=== PATIENT | male | born 2000 | race Hispanic/Latino ===

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

== ENCOUNTER 2025-08-03 11:57 | Emergency (ER) | payer OTHER ==
[~2025-08-03] VITALS: Ht 172.7 cm; Wt 68.0 kg
[~2025-08-03 11:57] MED LIST: CYCL5TAB3 PO; LIDO1ADH71 TP; METH4TAB3 PO; NAPR-1194 PO
[2025-08-03] MEDS: 0.9%NACL 1000ML 1,000 ML IV SCH (12:33)
[2025-08-03] MEDS ORDERED: ONDA-243 PO (12:43)
--- NOTE | 2025-08-03 12:46 | ERN ---
ED Note History of Present Illness Stated Complaint: GBW Chief Complaint: Weakness Time Seen by MD: 12:07 Time Seen by Midlevel: 12:07 Dictation: Mr. Sethi is a 25-year-old male with no reported chronic health issues who presented to the emergency department this afternoon for evaluation of general body weakness. He reports fatigue, general weakness, nausea, vomiting, until headache after drinking last night. He states he drank more than usual to include six shots of whiskey. He denies fever, chills, shortness of breath, cough, chest pain, palpitations, edema, abdominal pain,hematemesis, constipation, diarrhea, melena, hematochezia, dysuria, dizziness, or focal weakness/paresthesia Allergies: Coded Allergies: No Known Drug Allergies (Unverified Allergy, Unknown, 12/05/19) Home Meds Active Scripts Lidocaine (Lidocaine Pain Relief) 4 % Adh..patch, 1 EACH TP DAILY for 5 Days, #5 ADH.PATCH Prov:THERESA VERONICA 01/11/24 Naproxen (Naproxen) 500 Mg Tablet, 500 MG PO BID for 5 Days, #10 TAB Prov:THERESA VERONICA 01/11/24 Methylprednisolone (Medrol) 4 Mg Tab.ds.pk, 4 MG PO AD for torrie medrol pack instruction for 5 Days, #1 PACK Prov:THERESA VERONICA 01/11/24 Cyclobenzaprine HCl (Cyclobenzaprine HCl) 5 Mg Tablet, 5 MG PO DAILYDINNER for 5 Days, #5 TAB Prov:THERESA VERONICA 01/11/24 Past Medical History Past Medical History: No Pertinent History Surgical History: None PSYCH History: no pertinent psych hx Social History: ETOH (1-2 times per month), Lives with family RN Note Reviewed/Agreed w/PFSH: Yes Review of System Dictation REVIEW OF SYSTEMS: CONSTITUTIONAL: Patient denies fevers, chills, sweats and weight changes. Reports fatigue and general weakness EYES: Patient denies any visual symptoms. EARS, NOSE, AND THROAT: No difficulties with hearing. No symptoms of rhinitis or sore throat. CARDIOVASCULAR: Patient denies chest pains, palpitations, orthopnea and paroxysmal nocturnal dyspnea. RESPIRATORY: No dyspnea on exertion, no wheezing or cough. GI: No diarrhea, constipation, abdominal pain, hematochezia or melena. Reports nausea and vomiting : No urinary hesitancy or dribbling. No nocturia or urinary frequency. No abnormal urethral discharge. MUSCULOSKELETAL: No myalgias or arthralgias. NEUROLOGIC: No chronic headaches, no seizures. Patient denies numbness, tingling or weakness. Reports dull headache. PSYCHIATRIC: Patient denies problems with mood disturbance. No problems with anxiety. ENDOCRINE: No excessive urination or excessive thirst. DERMATOLOGIC: Patient denies any rashes or skin changes. Initial Vital Sign VS Vital Signs Date Time Temp Pulse Resp B/P (MAP) Pulse Ox O2 Delivery O2 Flow Rate FiO2 08/03/25 12:01 97.2 83 16 121/66 98 Room Air 0 08/03/25 12:04 21 Physical Exam Dictation Vital signs: Reviewed. Afebrile Constitutional: No acute distress. Non-toxic appearing. Head/Face: Normocephalic, atraumatic. Eyes: Periorbital areas with no swelling, redness, or edema. Lids and lashes are normal. Conjunctival injection is Sclera anicteric. Pupils equal, round, reactive to light. ENT: Pinnas intact and no signs of trauma or erythema. Ear canals clear and no discharge. TMs no erythema. No nasal discharge or bleeding noted. Oropharynx with no exudate, redness, swelling, masses, exudates, or evidence of obstruction. Uvula midline. Mucous membranes slightly dry. Neck: Trachea midline, no masses palpated, and no cervical lymphadenopathy. No swelling. Supple, full range of motion. Chest/Axilla: No tenderness, no crepitus, no paradoxical movement, no retractions. Cardiovascular: Regular rate, regular rhythm, no murmur, no gallops. Symmetric pulses. No peripheral edema. Normotensive Respiratory: Respirations even and unlabored. Lung sounds clear; no wheezes, rales or rhonchi. Room air SpO2 100% Gastrointestinal: Inspection is normal. No distention is appreciated. Bowel sounds are normal. No mass or organomegaly . There is no tenderness. No rebound. No rigidity. No voluntary or involuntary guarding. No Marroquin's sign. Neurological: Normal speech, gross motor function intact, gross sensory function intact. No focal weakness/Paresthesia. Musculoskeletal/Extremities: All extremities have full range of motion, no pain or tenderness on palpation. Symmetric pulses. Integumentary: Intact. Skin is normal color, warm and dry. Cap refill less than 2 seconds. ED Course ED Course Orders Procedure Category Date Status Time 0.9%Nacl 1000ml (Ns PHA 08/03/25 In Process 1000ml) 12:30 Current Medications Medications (Trade) Dose Ordered Sig/Hiwot Route PRN Reason Start Time Stop Time Status Last Admin Dose Admin Sodium Chloride 1,000 ml @ 0 mls/hr Q0M IV 08/03/25 12:30 09/02/25 12:29 08/03/25 12:33 Vital Signs Date Time Temp Pulse Resp B/P (MAP) Pulse Ox O2 Delivery O2 Flow Rate FiO2 08/03/25 12:04 97.2 83 16 121/66 98 Room Air* 0 21 08/03/25 12:01 97.2 83 16 121/66 98 Room Air 0 Uneventful ED course. Vital signs stable; afebrile with room air SpO2 98-100%. He received dose Zofran as well as NS 1000 mL IV as bolus. He is now able to tolerate p.o. fluids and states he is feeling much better. Medical Decision Making MDM MDM: Differential diagnosis: Acute dehydration, Vesialgia, nausea/vomiting Rationale: Tests considered and ordered secondary to shared decision making include: Examintation Previous outside records reviewed: Old ER visits. Risk of complication and/or morbidity or mortality of patient management: None Medications-Per medication reconciliation Need for hospitalization: Patient does not meet criteria for hospitalization. Need for emergency major/minor surgery: No There are no social concerns with this patient. Prescription drug management: Zofran ODT Prescriptions will include symptomatic care Patient's prior external medical records from other ER visits were reviewed by me as indicated. Prior testing and results from previous visits were reviewed. Prior tests were taken into account with medical decision making and resource utilization, independent historian/historians were used to obtain complete medical history. I independently interpreted the test that were performed, results were reviewed by me and considered findings on radiology if ordered. Medical management and examination interpretation discussions were had by me with other qualified healthcare professionals as indicated for the patient's care. DX & DISP Disposition: Discharge Departure Impression: Primary Impression: Veisalgia Additional Impressions: Adverse effect of alcohol, Nausea & vomiting Condition: Stable Scripts Ondansetron (Ondansetron Odt) 4 Mg Tab.rapdis 4 MG PO Q6HPRN PRN for nausea, #10 TAB 0 Refills Prov: DONG BHAKTA NP 08/03/25 Additional Instructions: Diagnosis: Basal nausea (hangover)-symptoms related to alcohol use after blood alcohol levels have returned toward normal. Drink plenty of fluids (water, electrolyte drinks like Gatorade or Pedialyte) over the next 24 hours to replace fluids and electrolytes loss throughout falls diuretic effects. Avoid further alcohol which may temperature in the mass symptoms but ultimately worsens dehydration and delays recovering. He had light, bland food (toast, crackers, bananas, broth) as tolerated. Avoid greasy heavy meals if nauseated. May take Zofran ODT as needed for nausea. Small frequent stress may be easier than large meals. Tylenol may be used for headache or body aches. Get plenty of rest and sleep. Symptoms typically improve within 12-24 hours though some mild fatigue may last up to 48 hours. Return to the ER call 911 immediately if you experience: Persistent vomiting, inability to keep fluids down. Confusion, severe headache, or changes in mental status. Trouble breathing, chest pain, or fainting. Signs of alcohol withdrawal (tremors, sweating, rest heartbeat, agitation, hallucinations)-especially if you drink regularly. Black, bloody, or persistent vomiting which could indicate possible GI bleeding. Mention tips: Drink slowly and face alcoholic beverages with water or non alcoholic drinks. Eat before and during drinking to slough alcohol absorption. Limit total alcohol intake moderation is the most effective way to prevent hangovers. Arrange safe transportation; never drive under the influence. Follow up with your primary care physician as needed. Referrals: RADHA HUTSON MD (PCP) Time of Disposition: 12:45 DONG BHAKTA NP Aug 03, 2025 12:45
[2025-08-03 13:08] VITALS: BP 115/65; PULSE 80; RESP 16; TEMP 97.2; O2SAT 98
== END 2025-08-03 13:10 | disposition home or self-care (01) ==
LOC: EDH 11:57
DX: F10.929 Alcohol use, unspecified with intoxication, unspecified (principal); R11.2 Nausea with vomiting, unspecified; Z79.899 Other long term (current) drug therapy
CPT/HCPCS: 99283; 96374; J2405